=== PATIENT | male | born 1955 ===

== ENCOUNTER 2021-06-14 21:20 | Inpatient (IN) | payer OTHER ==
[~2021-06-14] VITALS: Ht 180.3 cm; Wt 67.8 kg
[2021-06-15 00:54] LABS: BASOPHILS ABSOLUTE AUTO 0.02 K/mm3 (0.00-0.23); BASOPHILS PERCENT AUTO 0 % (0-2); EOSINOPHILS ABSOLUTE AUTO 0.03 K/mm3 (0.00-0.68); EOSINOPHILS PERCENT AUTO 0 % (0-6); Hematocrit 41.1 % (37.0-53.0); Hemoglobin 14.2 g/dL (13.5-17.5); IMMATURE GRAN ABSOLUTE AUTO 0.06 K/mm3 (0.00-0.10); IMMATURE GRAN PERCENT AUTO 1 % (0-1); LYMPHOCYTES ABSOLUTE AUTO 0.88 K/mm3 (0.84-5.20); LYMPHOCYTES PERCENT AUTO 10 % (21-46); MONOCYTES PERCENT AUTO 5 % (4-13); Mean Corpuscular HGB 35.3 pg (26.0-34.0); Mean Corpuscular HGB Conc 34.5 g/dL (31.5-36.5); Mean Corpuscular Volume 102 fL (80-100); Mean Platelet Volume 8.4 fL (9.1-12.4); NEUTROPHILS ABSOLUTE AUTO 7.34 K/mm3 (1.96-9.15); NEUTROPHILS PERCENT AUTO 84 % (41-73); Platelet Count 182 K/mm3 (150-400); RDW Coefficient Variation 11.3 % (11.7-14.2); RDW Standard Deviation 42.7 fL (35.1-46.3); Red Blood Cell Count 4.02 M/mm3 (4.30-5.90); White Blood Cell Count 8.73 K/mm3 (4.00-11.30)
[2021-06-15 01:12] LABS: Alanine Aminotransfer (ALT/SGP 39 U/L (12-78); Albumin, Blood 3.2 g/dL (3.4-5.0); Alk Phos 62 U/L (50-136); Anion Gap 5 mmol/L (6-16); Aspartate Aminotrans (AST/SGOT 26 U/L (12-37); Bilirubin, Total 0.2 mg/dL (0.1-1.0); Blood Urea Nitrogen 5 mg/dL (8-24); Bun/Creatinine Ratio 9.7 (12.0-20.0); CO2, Blood 29 mmol/L (21-32); Calcium, Blood 7.7 mg/dL (8.5-10.1); Chloride, Blood 100 mmol/L (98-108); Creatinine, Blood 0.52 mg/dL (0.60-1.20); Ethanol (Alcohol), Blood, Med 208 mg/dL; Globulin, Blood 3.1 g/dL (2.2-4.0); Glomerular Filtration Rate >60 (60-); Glucose, Blood 99 mg/dL (70-99); Potassium, Blood 3.8 mmol/L (3.5-5.5); Sodium, Blood 134 mmol/L (136-145); Total Protein, Blood 6.3 g/dL (6.4-8.2)
--- NOTE | 2021-06-15 06:27 | NUR ---
SHIFT SUMMARY: PT AAOX4. VS WNL C/O PAIN IN RIGHT HIP. REC'D FROM ER TRANSFER TO BED. INITIAL ASSESSMENT COMPLETED. IV IN RIGHT AC 20G PATENT. UROSTOMY IN PLACE EMPTY CLEAR YELLOW URINE. MEDICATED FOR PAIN PER EMAR. PT BECAME LOUD DEMANDED WATER. INFORMED PT PER DR'S ORDERS HE IS NPO. HE BECAME LOUDER. NURSE METABOLIC SPECIALIST CALLED TO ROOM AND SPOKE WITH PT. PT STOOD UP OUT OF BED. ADVISED SAFETY IS A PRIORITY. PT REFUSED TO GO BACK INTO BED. DOCTOR AND SECURITY CALL. PT CONTINUE TO BE LOUD STAFF AND NURSES. DOCTOR SPOKE WITH PT NO LONGER NPO. PT REFUSING SURGERY. MEDICATED FOR PAIN PER EMAR. PAIN AT 9. REASSESS PT WITH EYES CLOSED IN BED. MONITORING AND MAINTAINING ALL SAFTEY PRECAUTION.
--- NOTE | 2021-06-15 09:39 | NUR ---
PATIENT C/O NAUSEA THIS A.M. AND PAIN. MEDICATED WITH ZOFRAN AND FENTANYL AND VERBALIZE RELIEF. RESTING WITH CALL LIGHT IN REACH. HAS BEEN TAKING SIPS WATER.
[2021-06-15 12:13] LABS: BASOPHILS ABSOLUTE AUTO 0.02 K/mm3 (0.00-0.23); BASOPHILS PERCENT AUTO 0 % (0-2); EOSINOPHILS ABSOLUTE AUTO 0.01 K/mm3 (0.00-0.68); EOSINOPHILS PERCENT AUTO 0 % (0-6); Hematocrit 41.4 % (37.0-53.0); Hemoglobin 14.3 g/dL (13.5-17.5); IMMATURE GRAN ABSOLUTE AUTO 0.04 K/mm3 (0.00-0.10); IMMATURE GRAN PERCENT AUTO 1 % (0-1); LYMPHOCYTES ABSOLUTE AUTO 0.54 K/mm3 (0.84-5.20); LYMPHOCYTES PERCENT AUTO 8 % (21-46); MONOCYTES ABSOLUTE AUTO 0.59 K/mm3 (0.16-1.47); MONOCYTES PERCENT AUTO 8 % (4-13); Mean Corpuscular HGB 35.7 pg (26.0-34.0); Mean Corpuscular HGB Conc 34.5 g/dL (31.5-36.5); Mean Corpuscular Volume 103 fL (80-100); Mean Platelet Volume 8.6 fL (9.1-12.4); NEUTROPHILS ABSOLUTE AUTO 5.91 K/mm3 (1.96-9.15); NEUTROPHILS PERCENT AUTO 83 % (41-73); Platelet Count 177 K/mm3 (150-400); RDW Coefficient Variation 11.3 % (11.7-14.2); RDW Standard Deviation 43.6 fL (35.1-46.3); Red Blood Cell Count 4.01 M/mm3 (4.30-5.90); White Blood Cell Count 7.11 K/mm3 (4.00-11.30)
[2021-06-15 12:33] LABS: Alanine Aminotransfer (ALT/SGP 35 U/L (12-78); Albumin, Blood 3.1 g/dL (3.4-5.0); Albumin/Globulin Ratio 1.1 (0.8-1.8); Alk Phos 63 U/L (50-136); Anion Gap 4 mmol/L (6-16); Aspartate Aminotrans (AST/SGOT 26 U/L (12-37); Bilirubin, Total 0.4 mg/dL (0.1-1.0); Blood Urea Nitrogen 6 mg/dL (8-24); Bun/Creatinine Ratio 10.4 (12.0-20.0); CO2, Blood 27 mmol/L (21-32); Calcium, Blood 8.1 mg/dL (8.5-10.1); Chloride, Blood 103 mmol/L (98-108); Creatinine, Blood 0.58 mg/dL (0.60-1.20); Globulin, Blood 2.9 g/dL (2.2-4.0); Glomerular Filtration Rate >60 (60-); Glucose, Blood 123 mg/dL (70-99); Potassium, Blood 4.7 mmol/L (3.5-5.5); Sodium, Blood 134 mmol/L (136-145)
--- NOTE | 2021-06-15 15:23 | NUR ---
PATIENT TO XRAY VIA CARMENZARMARCELO EARLIER, TOLERATE WELL. VERBALIZES RELIEF OF PAIN WITH 2 NORCO.
--- NOTE | 2021-06-15 15:53 | NUR ---
MAXWELL BAG ATTACHED TO UROSTOMY POUCH, PATIENT WITH GOOD OUTPUT.
--- NOTE | 2021-06-15 17:27 | NUR ---
PT. TO CT SCAN VIA GURNEY AT THIS TIME. STATES PAIN IS UNDER CONTROL AND VERBALIZE RELIEF OF PAIN WITH RECENT IV FENTANYL.
--- NOTE | 2021-06-15 18:26 | NUR ---
DR. SEGURA IN TO SEE PT. AFTER RETURN FROM CT. PLAN FOR HIP REPLACEMENT SATURDAY 06/17. PT. TO BE NPO P MN FRIDAY 06/16.
[2021-06-16 00:06] LABS: Influenza A, PCR NEGATIVE (NEGATIVE); Influenza B, PCR NEGATIVE (NEGATIVE); Resp Syncytial Virus, PCR NEGATIVE (NEGATIVE)
[2021-06-16 00:12] LABS: SARS-Cov-2 (COVID-19) PCR, MMC POSITIVE (NEGATIVE)
--- NOTE | 2021-06-16 06:26 | NUR ---
SHIFT SUMMARY: PT. AOX4, COMPLAINTS OF R HIP PAIN ADDRESSED, SEE EMAR. COVID TEST WAS MISSED WITH 2 PREVIOUS SHIFTS SINCE ADMISSION, COLLECTED SWAB LAST NIGHT & CAME BACK (+) FOR SARS COVID, TRANSFERRED PT. THEN FROM RM. 218 TO RM. 209. VASCULAR ACCESS PATENT, SALINE LOCKED. PT. NOTED WITH PRODUCTIVE COUGHING OF MODERATE AMOUNT OF WHITISH SECRETIONS. DROPLET & ENHANCED PRECAUTION INITIATED. NO S/S OF RESP./CV DISTRESS NOTED. WILL CONTINUE TO MONITOR.
--- NOTE | 2021-06-16 17:23 | NUR ---
SHIFT SUMMARY PT IS AWAITING POSSIBLE SURGERY FOR R HIP FX, BUT IS UNSURE IF HE WANTS SURGERY. PT REPORTS PAIN IS BETTER MANAGED AND HE IS ABLE TO MOVE HIS RIGHT LEG. PT CALLS APPRORIATELY. VSS. WILL MONITOR UNTIL REPORT TO NOC CHEY.
--- NOTE | 2021-06-17 04:17 | NUR ---
[id number] PATIENT NOTED WITH O2 SAT OF LOW 80'S TO HIGH 89% ON ROOM AIR, WATCHED FOR A FEW MINUTES & NOTED THE HIGHEST LEVEL IS ONLY UP TO 89% WITH SLOW DEEP BREATHING. INSPIRATORY WHEEZING & DIMINISHED BREATH SOUNDS NOTED. O2 3 L VIA NC BUT DID NOT GO UP TO 90%, WENT UP TO 5 L TO MAINTAIN ABOVE 90%. OUTSIDE ROOM O2 MONITORING STARTED & NOTED O2 SAT 92% - 94%. PT. ALERT & ORIENTED, PAIN MEDICINE GIVEN WITH SMALL SIP S OF WATER. PT. SLEPT WELL, ABLE TO MAKE NEEDS KNOWN USING A CALL LIGHT. NPO STARTED AT MIDNIGHT.
[2021-06-17 04:56] LABS: BASOPHILS ABSOLUTE AUTO 0.03 K/mm3 (0.00-0.23); BASOPHILS PERCENT AUTO 0 % (0-2); EOSINOPHILS ABSOLUTE AUTO 0.08 K/mm3 (0.00-0.68); EOSINOPHILS PERCENT AUTO 1 % (0-6); Hematocrit 41.5 % (37.0-53.0); Hemoglobin 14.3 g/dL (13.5-17.5); IMMATURE GRAN ABSOLUTE AUTO 0.05 K/mm3 (0.00-0.10); IMMATURE GRAN PERCENT AUTO 1 % (0-1); LYMPHOCYTES PERCENT AUTO 6 % (21-46); MONOCYTES ABSOLUTE AUTO 0.73 K/mm3 (0.16-1.47); MONOCYTES PERCENT AUTO 8 % (4-13); Mean Corpuscular HGB 35.3 pg (26.0-34.0); Mean Corpuscular HGB Conc 34.5 g/dL (31.5-36.5); Mean Corpuscular Volume 103 fL (80-100); Mean Platelet Volume 9.1 fL (9.1-12.4); NEUTROPHILS ABSOLUTE AUTO 7.72 K/mm3 (1.96-9.15); NEUTROPHILS PERCENT AUTO 85 % (41-73); Platelet Count 162 K/mm3 (150-400); RDW Coefficient Variation 11.1 % (11.7-14.2); RDW Standard Deviation 42.5 fL (35.1-46.3); Red Blood Cell Count 4.05 M/mm3 (4.30-5.90); White Blood Cell Count 9.11 K/mm3 (4.00-11.30)
[2021-06-17 05:09] LABS: International Normalized Ratio 1.04; Prothrombin Time Results 10.9 Sec (9.7-11.5)
[2021-06-17 05:19] LABS: Alanine Aminotransfer (ALT/SGP 26 U/L (12-78); Albumin, Blood 2.9 g/dL (3.4-5.0); Albumin/Globulin Ratio 0.9 (0.8-1.8); Alk Phos 62 U/L (50-136); Anion Gap 5 mmol/L (6-16); Aspartate Aminotrans (AST/SGOT 17 U/L (12-37); Bilirubin, Total 0.4 mg/dL (0.1-1.0); Blood Urea Nitrogen 8 mg/dL (8-24); Bun/Creatinine Ratio 11.7 (12.0-20.0); CO2, Blood 29 mmol/L (21-32); Calcium, Blood 8.6 mg/dL (8.5-10.1); Chloride, Blood 103 mmol/L (98-108); Creatinine, Blood 0.68 mg/dL (0.60-1.20); Globulin, Blood 3.4 g/dL (2.2-4.0); Glomerular Filtration Rate >60 (60-); Glucose, Blood 120 mg/dL (70-99); Sodium, Blood 137 mmol/L (136-145); Total Protein, Blood 6.3 g/dL (6.4-8.2)
--- NOTE | 2021-06-17 08:00 | NUR ---
-DISCUSSION WITH PT RE [facility] SURGERY PLAN, NPO. PT REP NOT INTERESTED IN SURGERY, WANTS TO SEE XRAYS AND WILL HAVE A DISCUSSION WITH SURGEON; I ENC HIM TO WAIT TO TALK WITH DR MADRIGAL BEFORE MAKING A DECISION AND REFUSING SG. INFORMED PT THAT DAYSURGERY REP THAT DR MADRIGAL IS IN SURGERY UNTIL 12NOON AND THEN SHE WILL COME AND DISCUSS PLAN FOR SURGERY WITH PT. PT AGREED TO REMAIN NPO.
--- NOTE | 2021-06-17 09:00 | NUR ---
DISCUSSION WITH HOSPITALIST ABOUT WHAT PT HAD TOLD ME IN THE AM, THAT HE DOES NOT BELIEVE HE WILL GET THE HIP SURGERY, WANTS TO SEE XRAYS; RELAYED THAT HE IS NPO, I DECREASED HIS OXYGEN TO 4L WHICH IS MAINTAINING SATS >93%. DR AVITIA WENT IN TO SEE PT.
--- NOTE | 2021-06-17 10:00 | NUR ---
NURSE ROUNDING: PT IS SITTING ON SIDE OF BED, DRESSED AND ASKED FOR ASSISTANCE PUTTING ON HIS SHOES SINCE HE IS LEAVING. HE SAID HE DECIDED NOT TO GET SURGERY, AND SINCE NO ONE WILL LET HIM TALK TO THE SURGEON, HE IS LEAVING. I EXPLAINED THAT WE HAD DISCUSSED THAT EARLIER AND THE SURGEON IS IN SURGERY UNTIL NOON, AND THEN WOULD BE BY TO DISCUSS THE PLAN OF SURGERY; AND IN THE MEANTIME HE MET WITH THE HOSPITALIST. HE DENIED SEEING DR AVITIA, AND SAID HE WASN'T WAITING, WASNT HAVING SURGERY, DID NOT "APPRECIATE BEING TREATED LIKE A SECOND RATE PERSON." AND THEN CONTINUED BERATING ME: "HOW DID YOU EVER BECOME A NURSE?." "YOU DID NOT TELL ME THAT." "YOU TREAT ME LIKE A SECOND RATE PERSON." "I AM OBVIOUSLY NOT IMPORTANT IF THE SURGEON HAS NOT COME TO SEE ME YET." "YOU'LL HAVE TO PUT MY SHOES ON." VERY RUDE AND UNKIND. I COMPLETED THE AMA FORM, PT SIGNED IT. I ASSISTED WITH PUTTING ON HIS SHOES, AND GATHERING ALL OF HIS PERSONAL ITEMS. GOT HIM INTO THE , AND HE WAS ROLLED OUT BY DC VOLUNTEER TO HIS WAITING RIDE.
== END 2021-06-17 10:10 | disposition left against medical advice (07) | DRG 535 ==
LOC: ER 21:20 → SURS 23:33
PROVIDERS: Internal Medicine; Physician Assistant; ADMIT Internal Medicine
PROC: HZ2ZZZZ Detoxification Services for Substance Abuse Treatment (ICD-10-PCS; principal; 2021-06-14)
PROC: 8E0ZXY6 Isolation (ICD-10-PCS; 2021-06-14)
DX: S72.001A Fracture of unspecified part of neck of right femur, initial encounter for closed fracture (principal); U07.1 COVID-19; J96.01 Acute respiratory failure with hypoxia; F17.200 Nicotine dependence, unspecified, uncomplicated; F10.129 Alcohol abuse with intoxication, unspecified; Z53.29 Procedure and treatment not carried out because of patient's decision for other reasons; Z85.51 Personal history of malignant neoplasm of bladder; Z85.46 Personal history of malignant neoplasm of prostate; Z90.49 Acquired absence of other specified parts of digestive tract; Z93.6 Other artificial openings of urinary tract status; Z90.79 Acquired absence of other genital organ(s); W10.1XXA Fall (on)(from) sidewalk curb, initial encounter
CPT/HCPCS: 0241U; 36415; 71045; 73502; 73700; 80053; 85025; 85610; 93005; 93010; 94760; 96374; 96375; 99285-25; A9270; G0480; J1170; J1650; J1885; J2405; J3010; J3411; J3475; J7030; J7042

== ENCOUNTER → 2022-10-01 | Outpatient (CLI) | payer MEDICARE, OTHER ==
[2022-10-01 19:05] LABS: BASOPHILS ABSOLUTE AUTO 0.07 K/mm3 (0.00-0.23); BASOPHILS PERCENT AUTO 1 % (0-2); EOSINOPHILS ABSOLUTE AUTO 0.12 K/mm3 (0.00-0.68); EOSINOPHILS PERCENT AUTO 1 % (0-6); Hematocrit 41.1 % (37.0-53.0); Hemoglobin 14.5 g/dL (13.5-17.5); IMMATURE GRAN ABSOLUTE AUTO 0.07 K/mm3 (0.00-0.10); IMMATURE GRAN PERCENT AUTO 1 % (0-1); LYMPHOCYTES ABSOLUTE AUTO 1.23 K/mm3 (0.84-5.20); LYMPHOCYTES PERCENT AUTO 11 % (21-46); MONOCYTES ABSOLUTE AUTO 0.73 K/mm3 (0.16-1.47); MONOCYTES PERCENT AUTO 7 % (4-13); Mean Corpuscular HGB 34.7 pg (26.0-34.0); Mean Corpuscular HGB Conc 35.3 g/dL (31.5-36.5); Mean Corpuscular Volume 98 fL (80-100); Mean Platelet Volume 8.2 fL (9.1-12.4); NEUTROPHILS PERCENT AUTO 80 % (41-73); Platelet Count 275 K/mm3 (150-400); RDW Coefficient Variation 11.7 % (11.7-14.2); RDW Standard Deviation 42.6 fL (35.1-46.3); Red Blood Cell Count 4.18 M/mm3 (4.30-5.90); White Blood Cell Count 10.82 K/mm3 (4.00-11.30)
[2022-10-01 19:55] LABS: Albumin, Blood 3.7 g/dL (3.4-5.0); Albumin/Globulin Ratio 1.1 (0.8-1.8); Bilirubin, Total 0.4 mg/dL (0.1-1.0); Bun/Creatinine Ratio 12.3 (12.0-20.0); Calcium, Blood 9.3 mg/dL (8.5-10.1); Creatinine, Blood 0.81 mg/dL (0.60-1.20); Globulin, Blood 3.3 g/dL (2.2-4.0); Potassium, Blood 4.1 mmol/L (3.5-5.5); Thyroid Stimulating Hormone 1.3 uIU/mL (0.360-4.800)
== END | disposition home or self-care (01) ==
LOC: LAB SHORT 18:58 → LAB 18:58
PROVIDERS: Physician Assistant
DX: R63.4 Abnormal weight loss (principal)
CPT/HCPCS: 80053; 84443; 85025